=== PATIENT | male | born 1935 | race Caucasian/White ===

== ENCOUNTER 2016-07-15 23:18 | Emergency (ER) | payer BC ==
--- NOTE | 2016-07-15 23:21 | PDOC ---
History of Present Illness - General Stated Complaint: BLEEDING FROM TOOTH EXTRACTION Time Seen by Provider: 07/15/16 23:21 - History of Present Illness Initial Comments: This 81-year-old man with a history of atrial fibrillation/hypertension/ hyperlipidemia presents with his son after having extraction of the right upper second molar earlier today. Approximately 10 AM, his dentist removed the tooth. According to the patient and his son, since then he has been bleeding from the site, despite direct pressure with gauze pads. In the past, the patient states that his dentist would suture the area of extraction since the patient is on warfarin. Apparently, today he did not use any sutures. The patient denies lightheadedness/shortness of breath/chest pain. He is scheduled to see his dentist tomorrow in the afternoon for replacement of a dental bridge. Past History - Past Medical History Allergies/Adverse Reactions: Allergies Allergy/AdvReac Type Severity Reaction Status Date / Time No Known Drug Allergies Allergy Verified 07/15/16 23:20 Home Medications: Ambulatory Orders Digoxin [Digitek] 0.5 mcg PO DAILY 07/15/16 Ezetimibe/Simvastatin [Vytorin 10-20 mg Tablet] 1 tab PO DAILY 07/15/16 Furosemide [Lasix] 20 mg PO DAILY 07/15/16 Metoprolol Succinate [Toprol Xl] 200 mg PO DAILY 07/15/16 Ramipril [Altace] 2.5 mg PO DAILY 07/15/16 Warfarin Sodium [Coumadin] 0.5 mg PO DAILY 07/15/16 Anemia: No Asthma: No Cancer: No Cardiac Disorders: Yes (VALVE DISEASE, A-FIB) CVA: No COPD: No CHF: No Dementia: No Diabetes: No GI Disorders: No Disorders: No HTN: Yes Hypercholesterolemia: Yes Liver Disease: No Seizures: No Thyroid Disease: No - Surgical History Abdominal Surgery: No Appendectomy: Yes Cardiac Surgery: Yes (cardiac cath?) Cholecystectomy: No Lung Surgery: No Neurologic Surgery: No Orthopedic Surgery: Yes (L knee arthroscopy) - Psycho/Social/Smoking Cessation Hx Anxiety: No Suicidal Ideation: No Smoking History: Never smoked Have you smoked in the past 12 months: No Hx Alcohol Use: No Drug/Substance Use Hx: No Substance Use Type: Alcohol Hx Substance Use Treatment: No Review of Systems - Review of Systems Able to Perform ROS?: Yes Comments:: 12 point review of systems is negative except for what is noted in the history of present illness *Physical Exam - Physical Exam Comments: GENERAL: The patient is awake, alert, and fully oriented, in no acute distress. Vital signs as noted. HEAD: Normal with no signs of trauma. EYES: Pupils equal, round and reactive to light, extraocular movements intact, sclera anicteric, conjunctiva clear with no pallor. ENT: Persistent oozing from the lateral aspect of extraction site, right upper second molar No pulsatile bleeding vessel observed No other abnormality present in the oropharynx or mouth NECK: Normal range of motion, supple without lymphadenopathy, JVD, or masses. LUNGS: Breath sounds equal, clear to auscultation bilaterally. No wheeze/ crackles. EXTREMITIES: Normal range of motion, no edema. No clubbing or cyanosis. No cords, erythema, or tenderness. NEUROLOGICAL: Cranial nerves II through XII grossly intact. Normal speech, normal gait. PSYCH: Normal mood, normal affect. SKIN: Warm, Dry, normal turgor, no rashes or lesions noted. As noted above, patient presents with persistent bleeding from dental extraction site. 1 mL of 1% lidocaine infiltrated into the area of bleeding. 3 interrupted sutures of 5-0 Vicryl placed in the area of bleeding. Surgicel packing placed on the area of suture and direct pressure maintained for 10 minutes. Medical Decision Making - Medical Decision Making Patient was observed for brief period of time after direct pressure to the sutured extraction site. No further bleeding was evident. Patient will be discharged with instructions to avoid chewing food until seen by his dentist. He should call his dentist the first thing in the morning and make an appointment to be seen as soon as possible. He should return to the emergency room if he has any persistent severe bleeding from the site of the extraction *DC/Admit/Observation/Transfer Diagnosis at time of Disposition: Postoperative bleeding from mouth S/P tooth extraction Qualifiers: Tooth loss class: unspecified tooth loss Qualified Code(s): K08.409 - Partial loss of teeth, unspecified cause, unspecified class - Discharge Dispostion Disposition: HOME Condition at time of disposition: Stable - Referrals Referrals: Harrison Monroy MD [Primary Care Provider] - - Patient Instructions Additional Instructions: call your dentist tomorrow morning as discussed direct pressure to area if bleeding recurs otherwise avoid chewing until seen by dentist
[2016-07-15 23:38] VITALS: BP 145/81; PULSE 82; TEMP 97.9; BMI 32.4
[2016-07-16] MEDS ORDERED: LIDO 2%/EPI 1:200000 PRESRVFRE (20 ML SDVIAL) ONE (00:38)
== END 2016-07-16 02:06 | disposition home or self-care (01) ==
LOC: FER 23:18
PROC: 0CQWXZ0 Repair of Upper Tooth, Single, External Approach (ICD-10-PCS; principal; 2016-07-15)
DX: K08.409 Partial loss of teeth, unspecified cause, unspecified class (principal); R58 Hemorrhage, not elsewhere classified; Z79.01 Long term (current) use of anticoagulants; I48.91 Unspecified atrial fibrillation; I10 Essential (primary) hypertension; E78.5 Hyperlipidemia, unspecified
CPT/HCPCS: 12020; 99281-25

== ENCOUNTER 2016-08-05 08:28 | Emergency (ER) | payer BC ==
--- NOTE | 2016-08-05 08:42 | PDOC ---
History of Present Illness - General Chief Complaint: Pain, Acute Stated Complaint: ABDOMINAL PAIN RADIATED TO CHEST AND NECK Time Seen by Provider: 08/05/16 08:31 History Source: Patient Exam Limitations: No Limitations - History of Present Illness Initial Comments: 08/05/16 08:43 This patient is a 81-year-old man with a history of atrial fibrillation (on coumadin and digoxin), hypertension, hyperlipidemia presents with a complaint of abdominal pain radiating to the chest Pt states he has had an upper respiratory infection for the past week He has had no fevers or chills He has noted a non productive cough He was actually seen by Pulmonary and Medical doctor for pre operative testing last week Pt states he actually felt better yesterday He awoke this morning at 4am He states he had abdominal pain, growling He thought he was hungry, he got up but was unable to go back to sleep He describes pain as heaviness, rates it 7/10, located in the upper abdomen and radiates to chest He reports associated shortness of breath He denies arm pain, or jaw pain He reports generalized weakness No recent travel No nausea, vomiting, diarrhea No vertigo, no syncope, no palpitations PMH: Afib, HTN, HLD PSH: Appendectomy, Arthroscopy, Cardiac Cath Meds: please see MAR ALL: Cinnamon, Hydrocodone Social: denies drug or cigarette use PMH: Dr Schuyler Eaton GENERAL/CONSTITUTIONAL: Yes: weakness No: fever, chills, loss of appetite. HEAD, EYES, EARS, NOSE AND THROAT: No: change in vision, ear pain, discharge, sore throat, throat swelling. CARDIOVASCULAR: Yes: chest pain No: lightheadedness, palpitations, syncope RESPIRATORY: Yes: cough, shortness of breath No: wheezing, hemoptysis, stridor. GASTROINTESTINAL: No: nausea, vomiting, diarrhea, abdominal pain GENITOURINARY: No: dysuria, hematuria, frequency, urgency, flank pain. MUSCULOSKELETAL: No: back pain, neck pain, joint pain, muscle swelling or pain SKIN: No: lesions, pallor, rash or easy bruising. NEUROLOGIC: No: headache, vertigo, paresthesias, weakness ENDOCRINE: No: unexplained weight gain or loss HEMATOLOGIC/LYMPHATIC: No: anemia, easy bleeding, swelling nodes. GENERAL: The patient is in no acute distress. HEAD: Normal with no signs of trauma. EYES: PERRLA, EOMI, sclera anicteric, conjunctiva clear. ENT: Ears normal, nares patent, oropharynx clear without exudates. Moist mucous membranes. NECK: Normal range of motion, supple without lymphadenopathy, JVD, or masses. LUNGS: Breath sounds equal, clear to auscultation bilaterally. No wheezes, and no crackles. HEART: Irregular rhythm, normal rate, no murmurs appreciated ABDOMEN: Soft, nontender, normoactive bowel sounds. No guarding, no rebound. No masses palpable. EXTREMITIES: No lower extremity edema NEUROLOGICAL: Cranial nerves II through XII grossly intact. Normal speech. No focal neurological deficits. MUSCULOSKELETAL: Back non-tender to palpation, no CVA tenderness SKIN: Warm, Dry, normal turgor, no rashes or lesions noted. 08/05/16 08:57 Past History - Past Medical History Allergies/Adverse Reactions: Allergies Allergy/AdvReac Type Severity Reaction Status Date / Time cinnamon Allergy Intermediate STOMACH Verified 07/24/16 10:23 PAIN hydrocodone Allergy Intermediate STOMACH Verified 07/24/16 10:23 PAIN, NAUSEA Home Medications: Ambulatory Orders Furosemide [Lasix] 20 mg PO DAILY 07/15/16 Metoprolol Succinate [Toprol Xl] 200 mg PO DAILY 07/15/16 Ramipril [Altace] 2.5 mg PO DAILY 07/15/16 Digoxin [Lanoxin -] 0.125 mg PO DAILY 07/24/16 Warfarin Sodium 5 mg PO DAILY 07/24/16 Ezetimibe/Simvastatin [Vytorin 10-20 mg Tablet] 1 tab PO DAILY 08/05/16 Anemia: No Asthma: No Cancer: No Cardiac Disorders: Yes (VALVE DISEASE, A-FIB) CVA: No COPD: No CHF: No Dementia: No Diabetes: No GI Disorders: No Disorders: No HTN: Yes Hypercholesterolemia: Yes Liver Disease: No Seizures: No Thyroid Disease: No - Surgical History Abdominal Surgery: No Appendectomy: Yes Cardiac Surgery: Yes (cardiac cath?) Cholecystectomy: No Lung Surgery: No Neurologic Surgery: No Orthopedic Surgery: Yes (L knee arthroscopy) - Psycho/Social/Smoking Cessation Hx Anxiety: No Suicidal Ideation: No Smoking History: Never smoked Have you smoked in the past 12 months: No Hx Alcohol Use: No Drug/Substance Use Hx: No Substance Use Type: Alcohol Hx Substance Use Treatment: No Heart Score/ECG Review #1 ECG reviewed & interpreted by me at: 08:43 08/05/16 08:43 Twelve-lead EKG was performed and reviewed by me. Afib rate of 83 bpm. [place] ml. Intervals nml - QRS:88ms, QTc:472ms. No st elevation or depression. (+) PVCs ED Treatment Course - LABORATORY CBC & Chemistry Diagram: 08/05/16 12:14 08/05/16 09:06 Medical Decision Making - Medical Decision Making 08/05/16 09:29 Will do labs Will do CXR Will re assess Will contact PMD 08/05/16 09:49 Laboratory Tests 08/05/16 08/05/16 09:06 09:06 WBC 20.4 H D Hgb 14.4 Hct 42.4 Plt Count 255 D Neutrophils % 80.1 Lymphocytes % 6.3 L D INR 1.44 H 08/05/16 09:58 Laboratory Tests 08/05/16 08/05/16 09:06 09:06 Sodium 136 Potassium 4.6 Chloride 105 Carbon Dioxide 23 Anion Gap 8 BUN 19 H D Creatinine 0.8 Random Glucose 125 H Troponin I 0.03 08/05/16 12:41 Laboratory Tests 08/05/16 12:14 WBC 20.0 H Hgb 13.8 Hct 41.0 Plt Count 254 08/05/16 13:05 08/05/16 13:05 Laboratory Tests 08/05/16 09:06 Digoxin 0.6807 L 08/05/16 14:50 CTA chest: no PE Bilateral pulmonary nodules Abd CT: no mass or abscess, no inflammation Will discharge to home Pt will need to call Dr Olvera to alert him that his labs are abnormal 08/05/16 15:[address] Olvera He is not available Message left for him Dr Olvera has called the ER to review this patient's labs He states pt hip replacement will be cancelled I have offered to inform patient He will do so *DC/Admit/Observation/Transfer Diagnosis at time of Disposition: Cough - Discharge Dispostion Disposition: HOME Condition at time of disposition: Stable Admit: No - Referrals Referrals: Pb Olvera MD [Staff Physician] - - Patient Instructions Printed Discharge Instructions: DI for Cough -- Adult Additional Instructions: YOU MUST CALL DR OLVERA TOMORROW REGARDING YOUR LABS YOU WERE GIVEN COPIES OF ALL LABS AND RESULTS PLEASE LET HIM KNOW ABOUT YOUR RESULTS BEFORE YOU HAVE TO GO TO THE OR
[2016-08-05 08:48] VITALS: TEMP 97.9; BMI 31.9
[2016-08-05 09:22] LABS: EOSINOPHIL 0.6 % (0-4.5); MCH 32.7 pg (25.7-33.7); MEAN CELL VOLUME 96.1 fl (80-96); MEAN PLT VOLUME 9.6 fl (7.5-11.1); NEUTROPHILS 80.1 % (42.8-82.8); PLATELET COUNT 255 K/MM3 (134-434); RDW 12.9 % (11.9-15.9); WHITE BLOOD COUNT 20.4 K/mm3 (4.0-10.8)
[2016-08-05 09:29] LABS: INR 1.44 (0.82-1.09)
[2016-08-05 09:35] LABS: ALK PHOS 73 U/L (32-92); AMYLASE 58 U/L (25-125); ANION GAP 8 (8-16); BILIRUBIN,TOTAL 1.4 mg/dl (0.2-1.0); CO2 23 mmol/L (22-28); COCKROFT - GAULT 89.34; CREATININE 0.8 mg/dl (0.6-1.3); GLUCOSE,RANDOM 125 mg/dl (74-106); SGOT/AST 23 U/L (10-42); SGPT/ALT 13 U/L (10-40); TOT PROT 7.1 g/dl (6.4-8.3)
[2016-08-05 09:49] LABS: TROPONIN I (DFP) 0.03 ng/ml (0.03-0.50)
[2016-08-05 11:09] LABS: URINE BILIRUBIN Negative (NEGATIVE); URINE BLOOD Trace-lysed (NEGATIVE); URINE GLUCOSE (UA) Negative (NEGATIVE); URINE KETONE Negative (NEGATIVE); URINE LEUK ESTERASE Negative (NEGATIVE); URINE NITRITE Negative (NEGATIVE); URINE PROTEIN Negative (NEGATIVE); URINE UROBILINOGEN 0.2 E.U/dl (0.2-1.0)
[2016-08-05 11:11] LABS: URINE COLOR YELLOW
--- NOTE | 2016-08-05 11:43 | EKG ---
Test Reason : Blood Pressure : / mmHG Vent. Rate : 083 BPM Atrial Rate : 097 BPM P-R Int : 000 ms QRS Dur : 088 ms QT Int : 402 ms P-R-T Axes : 000 -15 -07 degrees QTc Int : 472 ms ATRIAL FIBRILLATION WITH PREMATURE VENTRICULAR OR ABERRANTLY CONDUCTED COMPLEXES INFERIOR INFARCT , AGE UNDETERMINED ABNORMAL ECG NO PREVIOUS ECGS AVAILABLE Confirmed by CLARK MACIAS MD ([id number]) on 08/05/2016 11:43:06 AM Referred By: NILTON FARR Confirmed By:CLARK MACIAS MD
[2016-08-05 12:24] LABS: DIGOXIN LEVEL 0.6807 ng/ml (0.8-2.0)
[2016-08-05 12:32] LABS: BASOPHIL 0.6 % (0-2.0); EOSINOPHIL 0.3 % (0-4.5); MCH 32.2 pg (25.7-33.7); MCHC 33.8 g/dl (32.0-35.9); MEAN CELL VOLUME 95.4 fl (80-96); MEAN PLT VOLUME 8.6 fl (7.5-11.1); NEUTROPHILS 82.4 % (42.8-82.8); PLATELET COUNT 254 K/MM3 (134-434); RDW 13.3 % (11.9-15.9)
[2016-08-05 14:05] LABS: TROPONIN I (DFP) 0.03 ng/ml (0.03-0.50)
[2016-08-05 14:55] VITALS: BP 120/87; PULSE 98
== END 2016-08-05 15:10 | disposition home or self-care (01) ==
LOC: FER 08:28
DX: R05 Cough (principal); I48.91 Unspecified atrial fibrillation; Z79.01 Long term (current) use of anticoagulants; I10 Essential (primary) hypertension; E78.5 Hyperlipidemia, unspecified
CPT/HCPCS: 36415; 71020-TC; 71275-TC; 74177-TC; 80053; 80162; 81003; 82150; 82550; 83690; 84484; 85025; 85610; 87086; 93005; 99285-25

== ENCOUNTER 2016-09-04 05:53 | Inpatient (IN) | payer BC ==
[2016-09-04] MEDS ORDERED: CEFAZOLIN 2 GM in DEXTROSE 5%-WATER - 50 ML IVPB ONE (06:08)
[2016-09-04] MEDS ORDERED: TRANEXAMIC ACID 1000 MG/10 ML VIAL IVPUSH ONE (06:08)
[2016-09-04] MEDS ORDERED: ROPIVICAINE 0.2%/MORPH PF/KETOROLAC - 51ML DISP.SYRINGE IA ONE ×3 (06:08→10:57)
[2016-09-04] MEDS ORDERED: GABAPENTIN 300 MG CAPSULE (FP) ONE (06:38)
[2016-09-04] MEDS ORDERED: CELECOXIB 200 MG CAPSULE ONE (06:39)
[2016-09-04] MEDS ORDERED: oxyCODONE HCL 10 MG SUSTAINED ACTING TABLET ONE (06:39)
[2016-09-04 06:54] VITALS: BMI 31.7
[2016-09-04] MEDS ORDERED: VANCOMYCIN 1,000 MG VIAL (RESTRICTED TO ID ONLY) ONE (07:04)
[2016-09-04] MEDS ORDERED: ceFAZolin SODIUM 1 GM VIAL ONE ×2 (07:04→08:34)
[2016-09-04 07:17] LABS: INR 1.16 (0.82-1.09); PROTHROMBIN TIME (PATIENT) 12.9 SEC (10.2-13.0)
[2016-09-04] MEDS: oxyCODONE HCL 10 MG SUSTAINED ACTING TABLET PO ONE (07:20)
[2016-09-04] MEDS: CELECOXIB 200 MG CAPSULE PO ONE (07:20)
[2016-09-04] MEDS: GABAPENTIN 300 MG CAPSULE (FP) PO ONE (07:20)
[2016-09-04] MEDS ORDERED: DEXAMETHASONE SOD PHOSPHATE/PF 10 MG/ML SDV ONE (07:25)
[2016-09-04] MEDS ORDERED: LIDOCAINE 1% P/F 10 MG/ML VIAL ONE (07:26)
[2016-09-04] MEDS ORDERED: MIDAZOLAM HCL 2 MG/2 ML SINGLE DOSE VIAL ONE ×3 (07:26→10:00)
[2016-09-04] MEDS ORDERED: BUPIVACAINE HCL/PF (5 MG/ML) 30 ML VIAL IJ ONE ×2 (07:26→07:55)
--- NOTE | 2016-09-04 07:46 | HP ---
Admitting History and Physical - Admission Chief Complaint: Left hip osteoarthritis x years History of Present Illness: 81 year old male presents in regard to his left hip. Longstanding history of left hip osteoarthritis. He complains of pain, limited ROM, difficulty ambulating and difficulty completing ADLs. Patient has failed conservative treatment including PO medication, activity modification and an exercise program. At this point, patient would like to proceed with a left total hip arthroplasty (MAKOplasty). History Source: Patient - Past Medical History Cardiovascular: Yes: AFIB, CHF, HTN, Hyperlipdemia - Past Surgical History Additional Past Surgical History: See written H&P for surgical history - Smoking History Smoking history: Never smoked Have you smoked in the past 12 months: No - Alcohol/Substance Use Hx Alcohol Use: Yes (WINE WITH DINNER) - Social History ADL: Independent History of Recent Travel: No Home Medications - Allergies Allergies/Adverse Reactions: Allergies Allergy/AdvReac Type Severity Reaction Status Date / Time cinnamon AdvReac Intermediate STOMACH Verified 09/04/16 06:41 PAIN hydrocodone AdvReac Intermediate STOMACH Verified 09/04/16 06:41 PAIN, NAUSEA - Home Medications Home Medications: Ambulatory Orders Furosemide [Lasix] 20 mg PO Q48H 07/15/16 Digoxin [Lanoxin -] 0.125 mg PO DAILY 07/24/16 Warfarin Sodium 5 mg PO DAILY 07/24/16 Atorvastatin Ca [Lipitor] 20 mg PO HS 09/04/16 Cholecalciferol (Vitamin D3) [Vitamin D3] 2,000 unit PO DAILY 09/04/16 Metoprolol Succinate [Toprol Xl -] 50 mg PO BID 09/04/16 Ramipril [Altace] 10 mg PO HS 09/04/16 Review of Systems - Review of Systems Musculoskeletal: reports: Decreased ROM (left hip), Joint Pain (left hip) Physical Examination Vital Signs: Vital Signs Temperature 98 F 09/04/16 06:49 Pulse Rate 65 09/04/16 06:49 Respiratory Rate 16 09/04/16 06:49 Blood Pressure 140/85 09/04/16 06:49 O2 Sat by Pulse Oximetry (%) 99 09/04/16 06:58 Constitutional: Yes: Well Nourished, No Distress Eyes: Yes: Conjunctiva Clear HENT: Yes: Atraumatic, Normocephalic Neck: Yes: Supple Cardiovascular: Yes: Regular Rate and Rhythm Respiratory: Yes: Regular Gastrointestinal: Yes: Soft ...Rectal Exam: Yes: Deferred Musculoskeletal: Yes: Joint Stiffness (left hip) Assessment/Plan 81 year old male with history of longstanding left hip osteoarthritis. Patient complains of pain, limited ROM, difficulty ambulating and difficulty with ADLs. He has failed conservative treatment. Proceed with a left total hip arthroplasty (MAKOplasty).
[2016-09-04] MEDS ORDERED: BUPIVACAINE HCL/PF 0.5% (5MG/ML) 10 ML VIAL ONE (08:11)
[2016-09-04] MEDS ORDERED: PROPOFOL 20 ML ONE (08:12)
[2016-09-04] MEDS ORDERED: ePHEDrine SULFATE 50 MG/1 ML AMPULE ONE (08:12)
[2016-09-04] MEDS ORDERED: SUCCINYLCHOLINE CHLORIDE 200 MG/10 ML VIAL ONE (08:12)
[2016-09-04] MEDS ORDERED: TRANEXAMIC ACID 1000 MG/10 ML VIAL ONE (08:34)
[2016-09-04] MEDS ORDERED: DEXAMETHASONE SOD PHOSPHATE 4 MG/1 ML VIAL ONE (08:34)
[2016-09-04] MEDS ORDERED: ONDANSETRON 4 MG/2 ML VIAL ONE (08:34)
[2016-09-04] MEDS ORDERED: VANCOMYCIN 1,000 MG VIAL (RESTRICTED TO ID ONLY) IVPB ONE (10:56)
[2016-09-04] MEDS ORDERED: TRANEXAMIC ACID 1000 MG/10 ML VIAL IVPB ONE (10:56)
[2016-09-04] MEDS ORDERED: MAGNESIUM HYDROX 2400MG/30ML ORAL SUSPENSION 30 ML CUP PO PRN (12:19)
[2016-09-04] MEDS ORDERED: MAG HYDROX/AL HYDROX/SIMETH 30 ML UNIT-DOSE CUP PO PRN (12:19)
--- NOTE | 2016-09-04 12:19 | OP ---
Operative Note - Note: Operative Date: 09/04/16 Pre-Operative Diagnosis: left hip OA Operation: Left TERESA Post-Operative Diagnosis: Same as Pre-op Surgeon: Pb Arellano [employer] Meat Grader: Ivanna Boyce Anesthesia: Spinal Estimated Blood Loss (mls): 200
[2016-09-04] MEDS ORDERED: oxyCODONE HCL 5 MG TABLET PO PRN ×2 (12:22→12:23)
[2016-09-04] MEDS ORDERED: ACETAMINOPHEN 325 MG TABLET (FP) PO SCH (12:30)
[2016-09-04] MEDS ORDERED: LACTATED RINGERS SOLUTION 1,000 ML IV SCH (12:30)
[2016-09-04] MEDS ORDERED: KETOROLAC TROMETHAMINE 30 MG/1 ML VIAL ONE (12:35)
[2016-09-04] MEDS ORDERED: KETOROLAC TROMETHAMINE 30 MG/1 ML VIAL IVPUSH ONE (12:40)
[2016-09-04] MEDS ORDERED: ACETAMINOPHEN 1000 MG/100 ML VIAL (NON FORMULARY) IVPB ONE ×2 (12:40→12:45)
[2016-09-04] MEDS ORDERED: traMADol HCL 50 MG TABLET PO ONE (12:40)
[2016-09-04] MEDS ORDERED: PANTOPRAZOLE 40 MG TABLET (FP) PO ONE (13:15)
--- NOTE | 2016-09-04 13:16 | SPEC ---
DATE OF OPERATION: 09/04/2016 PREOPERATIVE DIAGNOSIS: Left hip osteoarthritis. POSTOPERATIVE DIAGNOSIS: Left hip osteoarthritis. PROCEDURE: Left total hip replacement with MAKOplasty robotic navigation. ATTENDING: Dr. Janette Olvera. MATERIALS ANALYST: JIE Shelton. ANESTHESIA: Spinal plus sedation. ESTIMATED BLOOD LOSS: 200 mL. COMPLICATIONS: None. SPECIMENS: Resected bone was sent for pathology analysis. DISPOSITION: The patient was transferred to the PACU in stable condition. IMPLANTS USED: Chantel Accolade 2 size 8 femoral component, Chantel Tritanium 58-mm acetabular component with MDM liner and head ball with +4 offset inner head. INDICATIONS: This is a 81-year-old male who presented to the office complaining of longstanding left hip and thigh pain. He was seen and examined by Dr. Olvera and diagnosed with severe left hip osteoarthritis. He was initially treated conservatively with an interarticular corticosteroid injection, medications and physical therapy but failed conservative management. He continue to have severe pain and ambulatory dysfunction and was indicated for a left total hip replacement. The risks, benefits and alteratives of the surgery were explained to the patient ion great detail and he elected to proceed with surgery. PROCEDURE IN DETAIL: On the day of surgery, the patient was taken to the operating room and placed on the OR table. Spinal anesthesia was administered by the anesthesiologist. The patient was then positioned in the lateral decubitus position on the table and all bony prominences were padded. An axillary roll was placed. The operative hip was then prepped and draped in the usual sterile fashion and intravenous antibiotics were given for infection prophylaxis. A surgical time-out was then performed with the team, and the patients identity, procedure, side, availability of implants, and the administration of antibiotics were confirmed. An approximately 15-cm longitudinal incision was made through the skin centered on the greater trochanter of the hip. This dissection was carried down through the subcutaneous tissues to the deep fascia. This fascia was then incised and a Cobra was placed around the inferior femoral neck. Electrocautery was used to reflect the anterior 40% of the gluteus medius and minimus starting at the musculotendinous junction and leaving a cuff for closure. This was reflected to reveal the capsule of the hip joint. An anterior capsulectomy was performed and the femoral head and neck were visualized. Grade 4 changes were noted diffusely throughout the joint. At this point, three small stab incisions were made superior to the main incision along the iliac crest. Three self-drilling Steinmann pins were then placed and the Advasense pelvic array was attached. Reference points on the limb were then entered into the robotic device and the limb length deficiency, offset, and femoral neck resection level were then calculated by the software. The hip was then dislocated with traction and external rotation. An oscillating saw was used to make the femoral neck cut at the level previously templated, and the femoral head was removed. Attention was then turned to the acetabulum. Retractors were then placed around the acetabulum and the labrum was removed. An acetabular checkpoint pin and the Advasense software were used to register the contours of the acetabulum. The acetabulum was then reamed in a single stage to the preoperatively templated size using the Vikash robotic arm. The appropriately sized cup was then impacted and had solid fixation as well as the preset inclination and version of 40 and 20 degrees, respectively. A polyethylene liner was then placed in the cup. Attention was then turned back to the femur, which was externally rotated for improved visualization. A femoral neck elevator was used to present the femoral neck cut, a box osteotome was used to enter the femoral canal, and a canal finder was used to go down the femoral shaft. The Vikash broaches were used sequentially until the optimal scratch fit was achieved. This correlated with the preoperatively templated size. From here, several different offset head and neck configurations were tested until excellent stability and length were obtained. These measurements were quantified using the Advasense software. All trial components were then removed, the femur was copiously irrigated, and the final components were placed. Leg length and stability were checked again and found to be excellent. Irrigation was performed again. Wound closure was started by repairing the abductor muscles with a no. 2 FiberWire stitch in a Krackow configuration passed through bone tunnels in the greater trochanter and tied over a bony bridge. This repair was then reinforced with a 0 V-Loc 180 barbed suture. Next, no. 1 Polysorb and 0 V-Loc 180 were used to close the fascia. The deep subcutaneous tissue was closed with no. 1 Polysorb sutures, and 2-0 Polysorb was used for the superficial subcutaneous tissue. The skin was closed using both 3-0 V-Loc 90 suture in a running subcuticular fashion and SwiftSet skin adhesive. The Vikash array and pins were removed from the iliac crest and the stab incision sites were irrigated and closed with 4-0 Polysorb sutures and SwiftSet skin adhesive. Once this was completed, a sterile dressing was applied. The patient was then awakened and taken to the PACU in stable condition. ADDENDUM: After final components were placed the hip was irrigated with normal saline, then a 3-minute dilute Betadine lavage was performed according to the [place] protocol. Following this, the hip was again thoroughly irrigated with normal saline pulsatile lavage and wound closure was begun. JANETTE OLVERA M.D. [id number]
[2016-09-04] MEDS: ONDANSETRON 4 MG/2 ML VIAL IVPB PRN (17:16)
[2016-09-04] MEDS: CEFAZOLIN 2 GM/D5W 50 ML IVPB SCH (18:17)
[2016-09-04] MEDS: ACETAMINOPHEN 325 MG TABLET (FP) PO SCH (19:03)
[2016-09-04] MEDS: KETOROLAC TROMETHAMINE 15 MG/ML VIAL IVPUSH SCH ×2 (19:05→19:18)
[2016-09-04] MEDS: traMADol HCL 50 MG TABLET PO SCH ×2 (19:05→19:18)
[2016-09-04] MEDS: ATORVASTATIN CA 20 MG TABLET (FP) PO SCH (21:19)
[2016-09-04] MEDS: GABAPENTIN 300 MG CAPSULE (FP) PO SCH (21:19)
[2016-09-04] MEDS: METOPROLOL SUCCINATE 50 MG TAB.SR.24H (FP) PO SCH (21:19)
[2016-09-04] MEDS: SENNOSIDES/DOCUSATE COMBO (SENNA PLUS) TABLET (UD) PO SCH (21:19)
[2016-09-04] MEDS: ASCORBIC ACID 500 MG TABLET (FP) PO SCH (21:19)
[2016-09-04] MEDS: oxyCODONE HCL 10 MG SUSTAINED ACTING TABLET PO SCH (21:20)
[2016-09-04] MEDS: CELECOXIB 200 MG CAPSULE PO SCH (21:20)
[2016-09-04] MEDS: RAMIPRIL 5 MG CAPSULE (FP) PO SCH (21:20)
[2016-09-05] MEDS: traMADol HCL 50 MG TABLET PO SCH ×5 (01:27→19:27)
[2016-09-05] MEDS: ACETAMINOPHEN 325 MG TABLET (FP) PO SCH ×4 (01:27→19:26)
[2016-09-05] MEDS: KETOROLAC TROMETHAMINE 15 MG/ML VIAL IVPUSH SCH ×2 (01:27→06:25)
[2016-09-05] MEDS: CEFAZOLIN 2 GM/D5W 50 ML IVPB SCH (01:28)
[2016-09-05 08:17] LABS: ANION GAP 6 (8-16); CALCIUM 8.5 mg/dl (8.4-10.2); CO2 24 mmol/L (22-28); GLUCOSE,RANDOM 132 mg/dl (74-106)
[2016-09-05 08:57] LABS: MCH 32.8 pg (25.7-33.7); MCHC 34.2 g/dl (32.0-35.9); MEAN PLT VOLUME 10.1 fl (7.5-11.1); PLATELET COUNT 204 K/MM3 (134-434); RDW 13.2 % (11.9-15.9); WHITE BLOOD COUNT 17.5 K/mm3 (4.0-10.8)
--- NOTE | 2016-09-05 09:10 | PN ---
Progress Note (short form) - Note Progress Note: Anesthesiology Post-op/Pain Service POD #1 s/p L THR under spinal anesthesia with paravertebral block. Pt sitting up in chair with no discomfort. States he was able to walk to bathroom with some assistance. He denies any residual numbness or paresthesia. Pain is well- controlled. Denies h/a. VSS.
[2016-09-05] MEDS: DIGOXIN 0.125 MG TABLET (FP) PO SCH (09:56)
[2016-09-05] MEDS: APIXABAN 2.5 MG TABLET PO SCH ×2 (09:56→22:02)
[2016-09-05] MEDS: CELECOXIB 200 MG CAPSULE PO SCH (09:56)
[2016-09-05] MEDS: SENNOSIDES/DOCUSATE COMBO (SENNA PLUS) TABLET (UD) PO SCH ×2 (09:57→22:02)
[2016-09-05] MEDS: oxyCODONE HCL 10 MG SUSTAINED ACTING TABLET PO SCH ×2 (09:57→22:02)
[2016-09-05] MEDS: GABAPENTIN 300 MG CAPSULE (FP) PO SCH ×2 (09:57→22:03)
[2016-09-05] MEDS: PANTOPRAZOLE 40 MG TABLET (FP) PO SCH (09:58)
[2016-09-05] MEDS: ASCORBIC ACID 500 MG TABLET (FP) PO SCH ×2 (09:59→22:02)
[2016-09-05] MEDS: MULTIVITAMINS (DAILY MVI) TABLET (FP) PO SCH (09:59)
[2016-09-05] MEDS: METOPROLOL SUCCINATE 50 MG TAB.SR.24H (FP) PO SCH ×2 (09:59→23:00)
[2016-09-05] MEDS ORDERED: FUROSEMIDE 20 MG TABLET (FP) PO SCH (10:00)
[2016-09-05] MEDS ORDERED: WARFARIN NA 5 MG TABLET (UD) PO SCH (10:00)
--- NOTE | 2016-09-05 21:03 | PN ---
Progress Note (short form) - Note Progress Note: Pt seen and examined. Comfortable. No complaints. AVSS Selected Entries 09/05/16 09/05/16 09/05/16 06:00 08:26 09:56 Temperature 98.3 F Pulse Rate 75 81 Respiratory 18 18 Rate Respiratory Non-Labored Effort Blood Pressure 118/58 O2 Sat by Pulse 96 96 Oximetry (%) Oxygen Delivery Room Air Room Air Method Laboratory Tests 09/04/16 09/05/16 09/05/16 06:30 07:00 07:00 WBC 17.5 H Hgb 12.0 D Hct 35.0 L Plt Count 204 INR 1.16 Sodium 136 Potassium 5.3 H Chloride 106 Carbon Dioxide 24 Anion Gap 6 L BUN 31 H D Creatinine 1.0 D Random Glucose 132 H Calcium 8.5 Gen: NAD LLE: c/d/i, NVID A/P 81yo male POD#1 s/p L TERESA 1. PT/OOB - WBAT LLE 2. D/C home tomorrow
[2016-09-05] MEDS: ATORVASTATIN CA 20 MG TABLET (FP) PO SCH (22:02)
[2016-09-05] MEDS: RAMIPRIL 5 MG CAPSULE (FP) PO SCH (22:02)
--- NOTE | 2016-09-06 00:38 | ED.PROV ---
Physicial Exam I saw and examined the patient. This is a 81-year-old male who said that he got confused and got out of the wrong side of the bed and bumped into some of the furniture rate resulting in him having to sit down on the floor. Patient said he did not hit his head he did not injure himself and did not actually fall but just sat on the floor. Patient denies any complaints. On exam there is no evidence of trauma and no tenderness on palpation. - Vital Signs Last Vital Signs Temp Pulse Resp BP Pulse Ox 98.4 F 73 20 97/53 97 09/05/16 22:20 09/05/16 22:20 09/05/16 22:20 09/05/16 22:20 09/05/16 22:20
[2016-09-06] MEDS: ACETAMINOPHEN 325 MG TABLET (FP) PO SCH ×3 (00:47→13:42)
[2016-09-06] MEDS: traMADol HCL 50 MG TABLET PO SCH ×3 (00:51→13:42)
[2016-09-06] MEDS: METOPROLOL SUCCINATE 50 MG TAB.SR.24H (FP) PO SCH ×2 (00:52→09:30)
[2016-09-06 07:37] LABS: MCH 32.9 pg (25.7-33.7); MCHC 34.5 g/dl (32.0-35.9); MEAN CELL VOLUME 95.4 fl (80-96); MEAN PLT VOLUME 8.8 fl (7.5-11.1); PLATELET COUNT 166 K/MM3 (134-434); RDW 12.8 % (11.9-15.9); WHITE BLOOD COUNT 14.5 K/mm3 (4.0-10.8)
[2016-09-06 07:52] LABS: ANION GAP 6 (8-16); CALCIUM 8.3 mg/dl (8.4-10.2); CO2 26 mmol/L (22-28); CREATININE 1.1 mg/dl (0.6-1.3); GLUCOSE,RANDOM 98 mg/dl (74-106)
[2016-09-06] MEDS: ONDANSETRON 4 MG/2 ML VIAL IVPB PRN (08:49)
[2016-09-06] MEDS: APIXABAN 2.5 MG TABLET PO SCH (09:30)
[2016-09-06] MEDS: MULTIVITAMINS (DAILY MVI) TABLET (FP) PO SCH (09:30)
[2016-09-06] MEDS: ASCORBIC ACID 500 MG TABLET (FP) PO SCH (09:30)
[2016-09-06] MEDS: PANTOPRAZOLE 40 MG TABLET (FP) PO SCH (09:30)
[2016-09-06] MEDS: DIGOXIN 0.125 MG TABLET (FP) PO SCH (09:30)
[2016-09-06 09:31] VITALS: PULSE 78
[2016-09-06] MEDS: SENNOSIDES/DOCUSATE COMBO (SENNA PLUS) TABLET (UD) PO SCH (09:31)
[2016-09-06] MEDS: GABAPENTIN 300 MG CAPSULE (FP) PO SCH (09:31)
[2016-09-06] MEDS: oxyCODONE HCL 10 MG SUSTAINED ACTING TABLET PO SCH (09:31)
[2016-09-06 10:48] VITALS: TEMP 98.3
[2016-09-06] MEDS: CELECOXIB 200 MG CAPSULE PO ONE (10:51)
[2016-09-06] MEDS: GABAPENTIN 300 MG CAPSULE (FP) PO ONE (10:52)
[2016-09-06] MEDS: oxyCODONE HCL 10 MG SUSTAINED ACTING TABLET PO ONE (10:52)
--- NOTE | 2016-09-06 16:14 | PN ---
Progress Note (short form) - Note Progress Note: Pt seen and examined. Events noted. Fell last night when he tried to get up to go to the bathroom by himself without calling for assistance. He did not realize that the SCD machine was connected to his legs and got tangled in the cord. C/o slight right shoulder pain but otherwise comfortable and ambulatory. Wants to go home. AVSS Selected Entries 09/06/16 09/06/16 09/06/16 06:29 09:30 10:00 Temperature 98.3 F Pulse Rate 78 Respiratory 16 Rate Blood Pressure 148/69 O2 Sat by Pulse 98 Oximetry (%) Oxygen Delivery Room Air Method Laboratory Tests 09/06/16 09/06/16 07:24 07:24 WBC 14.5 H Hgb 11.3 L Hct 32.7 L Plt Count 166 Sodium 136 Potassium 4.7 Chloride 104 Carbon Dioxide 26 Anion Gap 6 L BUN 40 H D Creatinine 1.1 Random Glucose 98 D Gen: NAD LLE: c/d/i, NVID RUE: Skin intact, no TTP anywhere. FROM with mild discomfort with forward flexion. Mild impingement signs. Full strength in rotator cuff. NVID A/P 81yo male POD#2 s/p L TERESA, right shoulder bursitis vs supraspinatus strain 1. PT/OOB - WBAT LLE 2. D/C home today 3. If right shoulder pain does not resolve in next week - corticosteroid injection in office.
[2016-09-06 17:04] VITALS: BP 130/68
--- NOTE | 2016-09-08 14:17 | PATH ---
Surgical Pathology Report Patient Name: SATISH HUMMEL Med. Rec. #: [id number] /Age/Gender: 1935 (Age: 81) / M Account: [id number] Location: [facility] MED-SURG Taken: 09/04/2016 Received: 09/04/2016 Reported: 09/10/2016 Physicians: Pb Arellano M.D. Specimen(s) Received LEFT FEMORAL HEAD Clinical History Left hip osteoarthritis Final Diagnosis FEMORAL HEAD, LEFT, TOTAL HIP REPLACEMENT (MAKOPLASTY): DEGENERATIVE JOINT DISEASE. Electronically Signed Gabe Herrera M.D. Gross Description Received in formalin, labeled "left femoral head" is a 5.5 x 5.3 x 5.0 cm femoral head with a 1 cm in length portion of femoral neck attached. The margin of resection is smooth. There is a 5 cm in greatest dimension area of eburnation present. The remaining articular surface is hutton-yellow and diffusely nodular and granular. The underlying trabecular bone is hutton-yellow and heterogeneous. A independent sales representative section is submitted in one cassette, following decalcification. 09/05/201609/05/2016
== END 2016-09-06 17:06 | disposition home health service (06) | DRG 470 ==
LOC: FM/S 05:53
PROVIDERS: ADMIT Student in an Organized Health Care Education/Training Program; ATTEND Student in an Organized Health Care Education/Training Program
PROC: 8E0W0CZ Robotic Assisted Procedure of Trunk Region, Open Approach (ICD-10-PCS; 2016-09-04)
PROC: 0SRB0JA Replacement of Left Hip Joint with Synthetic Substitute, Uncemented, Open Approach (ICD-10-PCS; principal; 2016-09-04 08:59)
DX: M16.12 Unilateral primary osteoarthritis, left hip (principal); E78.5 Hyperlipidemia, unspecified; I11.0 Hypertensive heart disease with heart failure; I50.9 Heart failure, unspecified; I48.91 Unspecified atrial fibrillation
CPT/HCPCS: 36415; 73030-TC-RT; 73502-TC-LT; 80048; 85027; 85610; 88304-TC; 88311-TC; 94760; 97116-GP; 97162-GP

== ENCOUNTER 2017-04-24 07:30 | Emergency (ER) | payer BC, OTHER ==
[2017-04-24 07:40] VITALS: BP 163/95; PULSE 68; TEMP 97.7; BMI 31.9
--- NOTE | 2017-04-24 08:04 | PDOC ---
History of Present Illness - General Chief Complaint: Pain Stated Complaint: LEFT LEG PAIN Time Seen by Provider: 04/24/17 08:03 - History of Present Illness Initial Comments: 04/24/17 08:05 Chief complaint: Left leg pain History of present illness: Left leg pain since yesterday. Onset while watching TV. No known injury or fall. Pain described as a sharp stabbing pain of the lateral left calf, intermittent, and moving today to the lateral left thigh. The pain is not present at rest, but occurs only with weightbearing. It is severely limiting ambulation. Review of systems: Denies distal numbness tingling pain or weakness of the ankle foot or toes. Denies back pain. Denies chest pain, shortness of breath, abdominal pain, nausea, vomiting, diarrhea, visual or focal neurologic symptoms other than those described above. Remainder systems reviewed and found to be negative Past medical history: Recent left hip replacement August 2016 without complication. Atrial fibrillation. CHF. High blood pressure. COPD. Elevated cholesterol Of note is that the patient is maintained on Eliquiis without any missed doses. No history of DVT or pulmonary embolus Social history: Lives alone, family nearby, denies alcohol drugs or tobacco. Ambulatory and cares for self. Family history: Significant for coronary artery disease, but not blood clots. Physical exam: Alert cheerful and cooperative no acute distress. Somewhat obese. No pain at rest Afebrile, vital signs normal except for mildly elevated blood pressure in the 165/95 range PERRLA, fundi benign, ENT clear Neck supple without bruit mass or nodes. No tenderness or deformity Chest clear, full breath sounds bilaterally, no wheezes rales or rhonchi, no dullness to percussion at the bases CV S1 and S2 distant, irregularly irregular, 2/6 systolic ejection murmur left sternal border, no JVD or edema Abdomen benign Neurological C2 to 12 intact. No focal sensory or motor deficits. Strength full and symmetric. Gait is impaired due to pain with weightbearing Extremities: Left leg appears entirely normal. There is no swelling, edema, erythema, induration, point tenderness, or deformity. There is good range of motion of both hips without pain or limitation. Pulses are full. No distal sensory deficits. Strength full and symmetric. There is no posterior calf swelling or tenderness and no cords palpable. 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 Past History - Past Medical History Allergies/Adverse Reactions: Allergies Allergy/AdvReac Type Severity Reaction Status Date / Time cinnamon AdvReac Intermediate STOMACH Verified 04/24/17 07:36 PAIN hydrocodone AdvReac Intermediate STOMACH Verified 04/24/17 07:36 PAIN, NAUSEA Home Medications: Ambulatory Orders Furosemide [Lasix] 20 mg PO DAILY 07/15/16 Digoxin [Lanoxin -] 0.125 mg PO DAILY 07/24/16 Atorvastatin Ca [Lipitor] 20 mg PO HS 09/04/16 Metoprolol Succinate [Toprol XL -] 50 mg PO BID 09/04/16 Ramipril [Altace] 10 mg PO HS 09/04/16 Apixaban [Eliquis -] 5 mg PO BID 04/24/17 Anemia: No Asthma: No Cancer: No Cardiac Disorders: Yes (VALVE DISEASE, A-FIB) CVA: No COPD: No CHF: No DVT: No Dementia: No Diabetes: No GI Disorders: No Disorders: No HTN: Yes Hypercholesterolemia: Yes Liver Disease: No Seizures: No Thyroid Disease: No - Surgical History Abdominal Surgery: No Appendectomy: Yes Cardiac Surgery: Yes (cardiac cath?) Cholecystectomy: No Lung Surgery: No Neurologic Surgery: No Orthopedic Surgery: Yes (L knee arthroscopy) - Suicide/Smoking/Psychosocial Hx Smoking History: Never smoked Have you smoked in the past 12 months: No Hx Alcohol Use: Yes (OCCASIONAL WINE) Drug/Substance Use Hx: No Substance Use Type: None Hx Substance Use Treatment: No *Physical Exam - Vital Signs Last Vital Signs Temp Pulse Resp BP Pulse Ox 97.7 F 68 18 163/95 99 04/24/17 07:31 04/24/17 07:31 04/24/17 07:31 04/24/17 07:31 04/24/17 07:31 Medical Decision Making - Medical Decision Making 04/24/17 09:21 X-ray is negative. Doppler is negative. Most likely diagnosis is meralgia. This was discussed with the patient and his son. The condition should improve with time. Use a walker was recommended until pain improved. Follow-up with orthopedist was encouraged. Patient adequately ambulatory and in no severe pain upon discharge to follow-up as recommended. *DC/Admit/Observation/Transfer Diagnosis at time of Disposition: Meralgia paresthetica of left side - Discharge Dispostion Disposition: HOME Condition at time of disposition: Stable Admit: No - Referrals - Patient Instructions Additional Instructions: Maintained normal level of activity. Avoid excessive standing and walking, bending and stretching. Tylenol as needed Use your walker if walking is painful Usually this condition gradually improved with time. If it is persistent or worsen, see orthopedist for further evaluation and treatment. An injection of the involved nerve may be helpful. - Post Discharge Activity
== END 2017-04-24 09:27 | disposition home or self-care (01) ==
LOC: FER 07:30
DX: G57.12 Meralgia paresthetica, left lower limb (principal); I10 Essential (primary) hypertension; E78.00 Pure hypercholesterolemia, unspecified; Z95.5 Presence of coronary angioplasty implant and graft; I48.91 Unspecified atrial fibrillation
CPT/HCPCS: 73523-TC-FY; 93971-TC; 99282-25

== ENCOUNTER 2018-09-08 07:12 | Emergency (ER) | payer BC ==
[2018-09-08 07:25] VITALS: BP 119/80; PULSE 68; TEMP 97.7; BMI 31.2
--- NOTE | 2018-09-08 07:50 | PDOC ---
History of Present Illness - General Chief Complaint: Pain, Acute Stated Complaint: PAIN IN LOWER LEFT LEG X 2 WEEKS Time Seen by Provider: 09/08/18 07:22 - History of Present Illness Initial Comments: 09/08/18 09:47 Chief complaint Back and leg pain History of present illness: Pain radiating from left buttock to posterior thigh and calf for several days. Worse this morning. No fall, injury, or recent overuse. no distal numbness tingling. No bowel or bladder incontinence or retention. No swelling or redness. Evaluated yesterday at [facility] with venous Doppler, no DVT. Review of systems: No chest pain, shortness of breath, nausea, diaphoresis, abdominal pain, visual or other focal neurologic symptoms, or unsteadiness of gait. No bowel or bladder symptoms. Past medical history: Sciatica intermittent in the past. Atrial fibrillation. CHF. BPH. On Eliquis. Social history: Lives alone, takes care of himself, no tobacco, one glass of wine each evening. Family nearby, involved, visited frequently Family history reviewed and noncontributory Physical exam: Alert and oriented well-developed well-nourished no acute distress cheerful and cooperative ambulatory Afebrile, vital signs . hEENT clear Neck supple no bruits masses nodes Lungs clear CV regular without murmur rub or gallop Abdomen benign Neurological C2 to 12 intact. Strength full and symmetric. No focal deficits. Gait stable Extremities: No calf swelling or tenderness. No warmth or erythema. full range of motiom left hip without restriction or pain. LS spine without deformity point tenderness or inflammation. straight leg raising negative. No distal sensory or motor deficits. Impression: Recurrence of sciatica, no sign of DVT or CVA/TIA .Plan: Symptomatic treatment and follow-up if no improvement Back Specialist Past History - Past Medical History Allergies/Adverse Reactions: Allergies Allergy/AdvReac Type Severity Reaction Status Date / Time cinnamon AdvReac Intermediate STOMACH Verified 09/08/18 07:14 PAIN hydrocodone AdvReac Intermediate STOMACH Verified 09/08/18 07:14 PAIN, NAUSEA Home Medications: Ambulatory Orders Apixaban [Eliquis] 5 mg PO BID 09/08/18 Atorvastatin Ca [Lipitor] 20 mg PO HS 09/08/18 Carvedilol 12.5 mg PO BID 09/08/18 Furosemide 20 mg PO DAILY 09/08/18 Sacubitril/Valsartan [Entresto 49 mg-51 mg Tablet] 1 each PO BID 09/08/18 Spironolactone 25 mg PO DAILY 09/08/18 Tamsulosin HCl 0.4 mg PO DAILY 09/08/18 Anemia: No Asthma: No Cancer: No Cardiac Disorders: Yes (VALVE DISEASE, A-FIB) CVA: No COPD: No CHF: No DVT: No Dementia: No Diabetes: No GI Disorders: No Disorders: No HTN: Yes Hypercholesterolemia: Yes Liver Disease: No Seizures: No Thyroid Disease: No - Surgical History Abdominal Surgery: No Appendectomy: Yes Cardiac Surgery: Yes (cardiac cath?) Cholecystectomy: No Lung Surgery: No Neurologic Surgery: No Orthopedic Surgery: Yes (L knee arthroscopy) - Suicide/Smoking/Psychosocial Hx Smoking History: Never smoked Have you smoked in the past 12 months: No Information on smoking cessation initiated: No Hx Alcohol Use: Yes (WINE) Drug/Substance Use Hx: No Substance Use Type: None Hx Substance Use Treatment: No *Physical Exam - Vital Signs Last Vital Signs Temp Pulse Resp BP Pulse Ox 97.7 F 68 16 119/80 99 09/08/18 07:21 09/08/18 07:21 09/08/18 07:21 09/08/18 07:21 09/08/18 07:21 *DC/Admit/Observation/Transfer Diagnosis at time of Disposition: Sciatica Qualifiers: Laterality: left Qualified Code(s): M54.32 - Sciatica, left side - Discharge Dispostion Disposition: HOME Condition at time of disposition: Stable Decision to Admit order: No - Referrals Referrals: Sorin Corea MD [Staff Physician] - 1 week - Patient Instructions Printed Discharge Instructions: DI for Sciatica Additional Instructions: avoid the sitting position. Use heat. 2 Tylenol as needed for pain. Follow-up Back Specialist as directed if no improvement. - Post Discharge Activity
== END 2018-09-08 07:54 | disposition home or self-care (01) ==
LOC: FER 07:12
DX: M54.32 Sciatica, left side (principal); I10 Essential (primary) hypertension; E78.00 Pure hypercholesterolemia, unspecified; I48.91 Unspecified atrial fibrillation
CPT/HCPCS: 99281-25

== ENCOUNTER 2020-02-14 19:05 | Emergency (ER) | payer BC ==
[2020-02-14 19:15] VITALS: BP 130/54; PULSE 66; TEMP 98.5; BMI 29.6
[2020-02-14 19:50] LABS: BASO % 1.2 % (0-2.0); EOS % 3.4 % (0-4.5); HEMATOCRIT 31.9 % (35.4-49); HEMOGLOBIN 10.7 GM/dl (11.7-16.9); LYMPH % 18.8 % (8-40); MCH 33.8 pg (25.7-33.7); MCHC 33.6 g/dl (32.0-35.9); MEAN CELL VOLUME 100.5 fl (80-96); MEAN PLT VOLUME 8.7 fl (7.5-11.1); MONO % 10.1 % (3.8-10.2); NEUT % 66.5 % (42.8-82.8); PLATELET COUNT 162 K/MM3 (134-434); RBC 3.17 M/mm3 (4.00-5.60); RDW 13.1 % (11.9-15.9); WHITE BLOOD COUNT 6.1 K/mm3 (4.0-10.8)
[2020-02-14 20:10] LABS: ALBUMIN 3.6 g/dl (3.4-5.0); BILIRUBIN,TOTAL 0.9 mg/dl (0.2-1); CALCIUM 8.5 mg/dl (8.5-10); CREATININE 1.2 mg/dl (0.55-1.3); POTASSIUM 4.6 mmol/L (3.5-5.1); TOT PROT 6.5 g/dl (6.4-8.2)
== END 2020-02-14 21:53 | disposition home or self-care (01) ==
LOC: FER 19:05
DX: R10.10 Upper abdominal pain, unspecified (principal)
CPT/HCPCS: 36415; 76705-TC; 80053; 81003; 81015; 82550; 83605; 83690; 84484; 85025; 93005; 99284-25

== ENCOUNTER 2020-08-10 09:05 | Emergency (ER) | payer BC ==
[2020-08-10 09:22] VITALS: BP 117/69; PULSE 63; TEMP 97.7; BMI 30.2
[2020-08-10] MEDS ORDERED: DIPHTH,PERTUSS(ACELL),TET 0.5 ML DISP.SYRIN IM ONE ×2 (09:26→09:27)
[2020-08-10] MEDS ORDERED: LIDO 2%/EPI 1:200000 PRESRVFRE (20 ML SDVIAL) INF ONE (09:28)
[2020-08-10] MEDS ORDERED: LIDO 2%/EPI 1:200000 PRESRVFRE (20 ML SDVIAL) ONE (09:29)
== END 2020-08-10 10:00 | disposition home or self-care (01) ==
LOC: FER 09:05
PROC: 0HQ0XZZ Repair Scalp Skin, External Approach (ICD-10-PCS; principal; 2020-08-10)
PROC: 3E0234Z Introduction of Serum, Toxoid and Vaccine into Muscle, Percutaneous Approach (ICD-10-PCS; 2020-08-10)
DX: S01.82XA Laceration with foreign body of other part of head, initial encounter (principal); S80.212A Abrasion, left knee, initial encounter
CPT/HCPCS: 90471; 90715; 99284-25

== ENCOUNTER 2020-08-17 09:15 | Emergency (ER) | payer BC ==
[2020-08-17 09:21] VITALS: BP 118/65; PULSE 65; TEMP 98.1; BMI 30.2
== END 2020-08-17 10:40 | disposition home or self-care (01) ==
LOC: FER 09:15
DX: Z48.02 Encounter for removal of sutures (principal)
CPT/HCPCS: 73562-TC-LT-FY; 99281-25

== ENCOUNTER 2020-08-28 11:20 | Inpatient (IN) | payer BC ==
[2020-08-28 11:39] VITALS: BMI 30.2
[2020-08-28 12:41] LABS: EOS % 2.5 % (0-4.5); HEMATOCRIT 31.1 % (35.4-49); HEMOGLOBIN 10.7 GM/dl (11.7-16.9); LYMPH % 21.4 % (8-40); MCH 34.3 pg (25.7-33.7); MCHC 34.4 g/dl (32.0-35.9); MEAN CELL VOLUME 99.6 fl (80-96); MEAN PLT VOLUME 9.2 fl (7.5-11.1); MONO % 8.6 % (3.8-10.2); NEUT % 65.5 % (42.8-82.8); PLATELET COUNT 124 10^3/uL (134-434); RBC 3.12 M/mm3 (4.00-5.60); RDW 13.7 % (11.9-15.9); WHITE BLOOD COUNT 6.4 K/mm3 (4.0-10.8)
[2020-08-28 12:58] LABS: ALBUMIN 3.7 g/dl (3.4-5.0); CALCIUM 8.6 mg/dl (8.5-10); CREATININE 0.9 mg/dl (0.55-1.3); TOT PROT 6.4 g/dl (6.4-8.2)
[2020-08-28] MEDS ORDERED: HEPARIN NA (PORCINE) 5,000 UNITS/ML 1ML VIAL SQ SCH (18:00)
[2020-08-28 19:34] LABS: INR 1.27 (0.83-1.09); PROTHROMBIN TIME (PATIENT) 15.5 SEC (9.7-13.0)
[2020-08-28 19:37] LABS: ACTIVATED PTT 33.9 SECONDS (25.2-36.5)
[2020-08-28 19:55] LABS: N-TERMINAL BNP 4104.5 pg/ml (5-450)
[2020-08-28 20:58] LABS: LDH 208 U/L (87-246)
[2020-08-28 21:26] LABS: MAGNESIUM 2.4 mg/dL (1.8-2.4)
[2020-08-28] MEDS: ATORVASTATIN CA 20 MG TABLET (FP) PO SCH (22:19)
[2020-08-28] MEDS: APIXABAN 5 MG TABLET PO SCH (22:19)
[2020-08-28] MEDS: SACUBITRIL/VALSARTAN 49 MG-51 MG TABLET PO SCH (22:20)
[2020-08-28] MEDS ORDERED: SODIUM CHLORIDE 250 ML IV STA (23:43)
[2020-08-29] MEDS ORDERED: MAGNESIUM OXIDE 400 MG TABLET (FP) PO ONE (04:23)
[2020-08-29 05:48] LABS: BASO % 2.9 % (0-2.0); EOS % 2.6 % (0-4.5); HEMATOCRIT 34.2 % (35.4-49); HEMOGLOBIN 11.5 GM/dL (11.7-16.9); LYMPH % 19.1 % (8-40); MCH 33.7 pg (25.7-33.7); MCHC 33.7 g/dl (32.0-35.9); MEAN CELL VOLUME 100.2 fl (80-96); MEAN PLT VOLUME 9.7 fl (7.5-11.1); MONO % 8.7 % (3.8-10.2); NEUT % 66.7 % (42.8-82.8); PLATELET COUNT 137 10^3/uL (134-434); RBC 3.41 M/mm3 (4.00-5.60); RDW 14.3 % (11.9-15.9); WHITE BLOOD COUNT 7.4 K/mm3 (4.0-10.0)
[2020-08-29 06:03] LABS: ALBUMIN 3.6 g/dl (3.4-5.0); CALCIUM 8.6 mg/dL (8.5-10.1); CHLORIDE 112 mmol/L (98-107); SODIUM 140 mmol/L (136-145)
[2020-08-29 06:04] LABS: ANION GAP 6 MMOL/L (8-16); BLOOD UREA NITROGEN 20.2 mg/dL (7-18); CO2 23 mmol/L (21-32); GLUCOSE,RANDOM 88 mg/dL (74-106); MAGNESIUM 2.2 mg/dL (1.8-2.4)
[2020-08-29 06:06] LABS: SGPT/ALT 30 U/L (13-61)
[2020-08-29 06:07] LABS: CREATININE 0.9 mg/dL (0.55-1.3); SGOT/AST 18 U/L (15-37)
[2020-08-29 06:08] LABS: TOT PROT 6.4 g/dl (6.4-8.2)
[2020-08-29 06:10] LABS: ALK PHOS 78 U/L (45-117)
[2020-08-29] MEDS ORDERED: DEXAMETHASONE SOD PHOSPHATE 4 MG/1 ML VIAL IVPUSH ONE (08:17)
[2020-08-29] MEDS ORDERED: PT OWN MED DRAWER 7, Y5N ONE ×2 (09:21→14:19)
[2020-08-29] MEDS ORDERED: DEXAMETHASONE SOD PHOSPHATE 4 MG/1 ML VIAL IVPUSH SCH ×2 (10:00)
[2020-08-29] MEDS ORDERED: ZINC SULFATE 220 MG TABLET PO SCH (10:00)
[2020-08-29] MEDS: APIXABAN 5 MG TABLET PO SCH ×2 (10:15→22:02)
[2020-08-29] MEDS: CHOLECALCIFEROL (VIT D3) 1,000 UNIT (25 MCG) TABLET PO SCH (10:15)
[2020-08-29] MEDS: ASCORBIC ACID 500 MG TABLET (FP) PO SCH ×2 (10:15→22:02)
[2020-08-29] MEDS: FUROSEMIDE 20 MG TABLET (FP) PO SCH (10:15)
[2020-08-29] MEDS: SACUBITRIL/VALSARTAN 49 MG-51 MG TABLET PO SCH ×2 (10:22→22:02)
[2020-08-29] MEDS: CARVEDILOL 12.5 MG TABLET (FP) PO SCH ×2 (10:28→22:02)
[2020-08-29] MEDS: METHIMAZOLE 5 MG TABLET (FP) PO SCH (14:27)
[2020-08-29] MEDS: ATORVASTATIN CA 20 MG TABLET (FP) PO SCH (22:02)
[2020-08-29] MEDS ORDERED: ZINC SULFATE 220 MG CAPSULE (FP) PO SCH (23:17)
[2020-08-30 09:16] LABS: BASO % 0.3 % (0-2.0); EOS % 2.4 % (0-4.5); HEMATOCRIT 31.6 % (35.4-49); HEMOGLOBIN 10.8 GM/dL (11.7-16.9); LYMPH % 15.1 % (8-40); MCH 33.8 pg (25.7-33.7); MCHC 34.1 g/dl (32.0-35.9); MEAN CELL VOLUME 99.2 fl (80-96); MEAN PLT VOLUME 9.4 fl (7.5-11.1); MONO % 7.4 % (3.8-10.2); NEUT % 74.8 % (42.8-82.8); PLATELET COUNT 140 10^3/uL (134-434); RBC 3.18 M/mm3 (4.00-5.60); RDW 14.2 % (11.9-15.9); WHITE BLOOD COUNT 6.8 K/mm3 (4.0-10.0)
[2020-08-30 09:33] LABS: CHLORIDE 110 mmol/L (98-107); SODIUM 139 mmol/L (136-145)
[2020-08-30 09:35] LABS: CALCIUM 8.3 mg/dL (8.5-10.1)
[2020-08-30 09:36] LABS: ALBUMIN 3.3 g/dl (3.4-5.0); ANION GAP 6 MMOL/L (8-16); BLOOD UREA NITROGEN 24.8 mg/dL (7-18); CO2 23 mmol/L (21-32); GLUCOSE,RANDOM 168 mg/dL (74-106)
[2020-08-30 09:39] LABS: CREATININE 0.9 mg/dL (0.55-1.3); SGOT/AST 14 U/L (15-37); SGPT/ALT 26 U/L (13-61)
[2020-08-30 09:40] LABS: BILIRUBIN,TOTAL 0.9 mg/dL (0.2-1); TOT PROT 6.1 g/dl (6.4-8.2)
[2020-08-30 09:41] LABS: ALK PHOS 82 U/L (45-117)
[2020-08-30] MEDS: ASCORBIC ACID 500 MG TABLET (FP) PO SCH (09:41)
[2020-08-30] MEDS: CARVEDILOL 12.5 MG TABLET (FP) PO SCH (09:42)
[2020-08-30] MEDS: APIXABAN 5 MG TABLET PO SCH (09:42)
[2020-08-30] MEDS: FUROSEMIDE 20 MG TABLET (FP) PO SCH (09:42)
[2020-08-30] MEDS: CHOLECALCIFEROL (VIT D3) 1,000 UNIT (25 MCG) TABLET PO SCH (09:42)
[2020-08-30] MEDS: METHIMAZOLE 5 MG TABLET (FP) PO SCH (11:02)
[2020-08-30] MEDS: SACUBITRIL/VALSARTAN 49 MG-51 MG TABLET PO SCH (11:02)
[2020-08-30 12:08] LABS: SARS-CoV-2 NAA Not Detected (Not Detected)
[2020-08-30 13:10] VITALS: BP 106/55; PULSE 58; TEMP 97.6
== END 2020-08-30 14:36 | disposition home or self-care (01) | DRG 313 ==
LOC: FER 11:20 → J4W 17:57
PROVIDERS: ADMIT Internal Medicine; ATTEND Nurse Practitioner Acute Care
DX: R07.89 Other chest pain (principal); U07.1 COVID-19; I48.19 Other persistent atrial fibrillation; I47.2 Ventricular tachycardia; E78.00 Pure hypercholesterolemia, unspecified; R00.1 Bradycardia, unspecified; E78.5 Hyperlipidemia, unspecified; I25.5 Ischemic cardiomyopathy; I11.0 Hypertensive heart disease with heart failure; I27.20 Pulmonary hypertension, unspecified; E05.90 Thyrotoxicosis, unspecified without thyrotoxic crisis or storm; N40.0 Benign prostatic hyperplasia without lower urinary tract symptoms; N20.0 Calculus of kidney; I50.82 Biventricular heart failure; Z23 Encounter for immunization
CPT/HCPCS: 36415; 70450-TC; 71045-TC-FY; 80053; 81003; 81015; 82550; 82728; 83615; 83735; 83880; 84443; 84484; 85025; 85379; 85610; 85651; 85730; 86140; 86769; 93005; 93306-TC; 99285-25; C9803; U0003; U0005

== ENCOUNTER 2020-10-12 21:24 | Emergency (ER) | payer BC ==
[2020-10-12 21:32] VITALS: BP 124/74; PULSE 68; TEMP 97.6; BMI 30.2
[2020-10-12] MEDS ORDERED: LIDO 2%/EPI 1:200000 PRESRVFRE (20 ML SDVIAL) ONE (21:59)
== END 2020-10-12 22:24 | disposition home or self-care (01) ==
LOC: FER 21:24
PROC: 0CQ6XZZ Repair Lower Gingiva, External Approach (ICD-10-PCS; principal; 2020-10-12)
DX: Z98.818 Other dental procedure status (principal)
CPT/HCPCS: 99283-25

== ENCOUNTER 2022-01-29 07:23 | Inpatient (IN) | payer BC ==
[2022-01-29] MEDS ORDERED: SODIUM CHLORIDE 500 ML IV STA (08:29)
[2022-01-29] MEDS ORDERED: ALBUTEROL SO4 0.042% IH SOL 1.25 MG/3 ML VIAL.NEB NEB ONE (08:34)
[2022-01-29 08:36] LABS: ALBUMIN 3.8 g/dl (3.4-5.0); BILIRUBIN,TOTAL 1.2 mg/dl (0.2-1); CALCIUM 8.4 mg/dl (8.5-10); CREATININE 1.1 mg/dl (0.55-1.3); TOT PROT 7.1 g/dl (6.4-8.2)
[2022-01-29] MEDS ORDERED: ALBUTEROL SO4 0.083% IH SOL 2.5 MG/3 ML VIAL.NEB. NEB ONE (08:36)
[2022-01-29 08:41] LABS: HEMATOCRIT 33.3 % (35.4-49); HEMOGLOBIN 11.4 G/dL (11.7-16.9); MCH 34.4 pg (25.7-33.7); MCHC 34.2 g/dl (32.0-35.9); MEAN CELL VOLUME 100.6 fl (80-96); MEAN PLT VOLUME 9.6 fl (7.5-11.1); PLATELET COUNT 146.4 10^3/uL (134-434); RBC 3.31 10^6/uL (4.00-5.60); RDW 14.2 % (11.9-15.9); WHITE BLOOD COUNT 6.1 10^3/uL (4.0-10.8)
[2022-01-29 08:47] LABS: ADD RBC MORPHOLOGY YES
[2022-01-29] MEDS ORDERED: ASPIRIN 81 MG CHEWABLE TABLETS PO ONE (10:04)
[2022-01-29 10:15] LABS: ANISOCYTOSIS 1+; PLATELET ESTIMATE ADEQUATE
[2022-01-29] MEDS ORDERED: ASPIRIN 81 MG CHEWABLE TABLETS ONE (10:22)
[2022-01-29] MEDS: CARVEDILOL 6.25 MG TABLET (FP) PO SCH ×2 (13:03→22:14)
[2022-01-29] MEDS: APIXABAN 5 MG TABLET PO SCH ×2 (13:03→22:14)
[2022-01-29] MEDS: SACUBITRIL/VALSARTAN 49 MG-51 MG TABLET PO SCH ×2 (13:03→22:13)
[2022-01-29 13:14] LABS: MAGNESIUM 1.8 mg/dL (1.8-2.4); PHOSPHOROUS 3.6 mg/dl (2.5-4.9)
[2022-01-29] MEDS ORDERED: HEPARIN NA (PORCINE) 5,000 UNITS/ML 1ML VIAL SQ SCH (14:00)
[2022-01-29 15:19] LABS: N-TERMINAL BNP 6832.5 pg/ml (5-450)
[2022-01-29] MEDS: ATORVASTATIN CA 20 MG TABLET (FP) PO SCH (22:14)
[2022-01-30 07:41] LABS: BASO % 0.7 % (0-2.0); EOS % 0.3 % (0-4.5); HEMATOCRIT 30.5 % (35.4-49); HEMOGLOBIN 10.6 GM/dL (11.7-16.9); LYMPH % 19.6 % (8-40); MCH 34.8 pg (25.7-33.7); MCHC 34.9 g/dl (32.0-35.9); MEAN CELL VOLUME 99.8 fl (80-96); MEAN PLT VOLUME 9.1 fl (7.5-11.1); MONO % 16.2 % (3.8-10.2); NEUT % 63.2 % (42.8-82.8); PLATELET COUNT 123 10^3/uL (134-434); RBC 3.06 M/mm3 (4.00-5.60); RDW 13.4 % (11.9-15.9); WHITE BLOOD COUNT 4.9 K/mm3 (4.0-10.0)
[2022-01-30 07:59] LABS: ALBUMIN 3.3 g/dl (3.4-5.0)
[2022-01-30 08:04] LABS: TOT PROT 6.2 g/dl (6.4-8.2)
[2022-01-30 08:05] LABS: BILIRUBIN,TOTAL 0.6 mg/dL (0.2-1)
[2022-01-30] MEDS ORDERED: ALBUTEROL SO4 0.083% IH SOL 2.5 MG/3 ML VIAL.NEB. NEB ONE (08:50)
[2022-01-30] MEDS: SACUBITRIL/VALSARTAN 49 MG-51 MG TABLET PO SCH ×2 (09:53→22:09)
[2022-01-30] MEDS: APIXABAN 5 MG TABLET PO SCH ×2 (09:54→22:09)
[2022-01-30 10:52] VITALS: BMI 30.6
[2022-01-30] MEDS: FUROSEMIDE 20 MG TABLET (FP) PO SCH (11:56)
[2022-01-30] MEDS: methylPREDNISolone NA SUCC 40 MG/1 ML VIAL IVPUSH SCH ×2 (12:50→17:22)
[2022-01-30 12:54] LABS: EPI CELLS 1 /uL (0-25.1); HYALINE CASTS 0 /uL (0-3.1); PH,URINE 5.5 (5.0-8.0); URINE APPEARANCE CLEAR; URINE BACTERIA 32 /uL (0-1359); URINE BILIRUBIN NEGATIVE (NEGATIVE); URINE COLOR YELLOW; URINE GLUCOSE (UA) NEGATIVE (NEGATIVE); URINE KETONE TRACE (NEGATIVE); URINE LEUK ESTERASE NEGATIVE (NEGATIVE); URINE NITRITE NEGATIVE (NEGATIVE); URINE PROTEIN TRACE (NEGATIVE); URINE RBC 17 /uL (0-23.9); URINE WBC 2 /uL (0-25.8)
[2022-01-30] MEDS ORDERED: guaiFENesin/D-METHORPHAN HB 10 ML UNIT-DOSE CUPS PO PRN (14:38)
[2022-01-30] MEDS: ALBUTEROL SO4 2.5/IPRATROPIUM 0.5 INH SOL 3 ML VIAL.NEB. NEB SCH ×2 (15:43→20:08)
[2022-01-30] MEDS: ATORVASTATIN CA 20 MG TABLET (FP) PO SCH (22:09)
[2022-01-31] MEDS: methylPREDNISolone NA SUCC 40 MG/1 ML VIAL IVPUSH SCH ×3 (01:40→19:42)
[2022-01-31 08:01] LABS: BASO % 0.2 % (0-2.0); HEMATOCRIT 32.7 % (35.4-49); HEMOGLOBIN 11.3 GM/dL (11.7-16.9); LYMPH % 12.4 % (8-40); MCH 34.3 pg (25.7-33.7); MCHC 34.5 g/dl (32.0-35.9); MEAN CELL VOLUME 99.4 fl (80-96); MEAN PLT VOLUME 8.9 fl (7.5-11.1); MONO % 2.8 % (3.8-10.2); NEUT % 84.6 % (42.8-82.8); PLATELET COUNT 129 10^3/uL (134-434); RBC 3.29 M/mm3 (4.00-5.60); RDW 13.8 % (11.9-15.9); WHITE BLOOD COUNT 3.7 K/mm3 (4.0-10.0)
[2022-01-31 08:55] LABS: BLOOD UREA NITROGEN 29.8 mg/dL (7-18); CALCIUM 8.2 mg/dL (8.5-10.1)
[2022-01-31] MEDS: ALBUTEROL SO4 2.5/IPRATROPIUM 0.5 INH SOL 3 ML VIAL.NEB. NEB SCH ×4 (09:06→21:10)
[2022-01-31] MEDS: FUROSEMIDE 20 MG TABLET (FP) PO SCH (10:00)
[2022-01-31] MEDS: PANTOPRAZOLE 40 MG TABLET PO SCH (10:02)
[2022-01-31] MEDS: APIXABAN 5 MG TABLET PO SCH ×2 (10:02→21:35)
[2022-01-31] MEDS: METHIMAZOLE 5 MG TABLET PO SCH (10:02)
[2022-01-31] MEDS: SACUBITRIL/VALSARTAN 49 MG-51 MG TABLET PO SCH ×2 (10:03→21:35)
[2022-01-31] MEDS: CARVEDILOL 6.25 MG TABLET (FP) PO SCH ×2 (10:05→21:35)
[2022-01-31] MEDS: ATORVASTATIN CA 20 MG TABLET (FP) PO SCH (21:35)
[2022-02-01] MEDS: methylPREDNISolone NA SUCC 40 MG/1 ML VIAL IVPUSH SCH ×3 (02:21→21:34)
[2022-02-01] MEDS: ALBUTEROL SO4 2.5/IPRATROPIUM 0.5 INH SOL 3 ML VIAL.NEB. NEB SCH ×4 (08:02→20:05)
[2022-02-01 08:06] LABS: HEMATOCRIT 32.7 % (35.4-49); HEMOGLOBIN 11.4 GM/dL (11.7-16.9); LYMPH % 6.2 % (8-40); MCH 34.6 pg (25.7-33.7); MEAN PLT VOLUME 9.2 fl (7.5-11.1); MONO % 5.1 % (3.8-10.2); NEUT % 88.7 % (42.8-82.8); PLATELET COUNT 155 10^3/uL (134-434); RDW 13.6 % (11.9-15.9); WHITE BLOOD COUNT 10.9 K/mm3 (4.0-10.0)
[2022-02-01 08:20] LABS: CALCIUM 7.9 mg/dL (8.5-10.1)
[2022-02-01 08:21] LABS: BLOOD UREA NITROGEN 37.8 mg/dL (7-18)
[2022-02-01 08:23] LABS: CREATININE 1.1 mg/dL (0.55-1.3)
[2022-02-01] MEDS: CARVEDILOL 6.25 MG TABLET (FP) PO SCH ×2 (10:05→21:36)
[2022-02-01] MEDS: PANTOPRAZOLE 40 MG TABLET PO SCH (10:05)
[2022-02-01] MEDS: FUROSEMIDE 20 MG TABLET (FP) PO SCH (10:05)
[2022-02-01] MEDS: SACUBITRIL/VALSARTAN 49 MG-51 MG TABLET PO SCH ×2 (10:06→21:33)
[2022-02-01] MEDS: APIXABAN 5 MG TABLET PO SCH ×2 (10:08→21:36)
[2022-02-01] MEDS: METHIMAZOLE 5 MG TABLET PO SCH (10:09)
[2022-02-01 14:48] VITALS: RESP 18
[2022-02-01] MEDS: ATORVASTATIN CA 20 MG TABLET (FP) PO SCH (21:35)
[2022-02-02] MEDS: ALBUTEROL SO4 2.5/IPRATROPIUM 0.5 INH SOL 3 ML VIAL.NEB. NEB SCH ×4 (08:05→20:35)
[2022-02-02] MEDS: CARVEDILOL 6.25 MG TABLET (FP) PO SCH ×2 (11:11→21:39)
[2022-02-02] MEDS: APIXABAN 5 MG TABLET PO SCH ×2 (11:12→21:39)
[2022-02-02] MEDS: PANTOPRAZOLE 40 MG TABLET PO SCH (11:12)
[2022-02-02] MEDS: FUROSEMIDE 20 MG TABLET (FP) PO SCH (11:12)
[2022-02-02] MEDS: SACUBITRIL/VALSARTAN 49 MG-51 MG TABLET PO SCH ×2 (11:12→21:39)
[2022-02-02] MEDS: methylPREDNISolone NA SUCC 40 MG/1 ML VIAL IVPUSH SCH ×2 (11:12→21:39)
[2022-02-02] MEDS: METHIMAZOLE 5 MG TABLET PO SCH (16:28)
[2022-02-02] MEDS: ATORVASTATIN CA 20 MG TABLET (FP) PO SCH (21:39)
[2022-02-03] MEDS: ALBUTEROL SO4 2.5/IPRATROPIUM 0.5 INH SOL 3 ML VIAL.NEB. NEB SCH ×2 (07:15→11:23)
[2022-02-03 08:56] LABS: HEMATOCRIT 33.1 % (35.4-49); HEMOGLOBIN 11.5 GM/dL (11.7-16.9); MCH 34.6 pg (25.7-33.7); MCHC 34.8 g/dl (32.0-35.9); MEAN CELL VOLUME 99.4 fl (80-96); MEAN PLT VOLUME 9.3 fl (7.5-11.1); MONO % 4.7 % (3.8-10.2); NEUT % 88.3 % (42.8-82.8); PLATELET COUNT 160 10^3/uL (134-434); RBC 3.33 M/mm3 (4.00-5.60); RDW 13.7 % (11.9-15.9); WHITE BLOOD COUNT 9.2 K/mm3 (4.0-10.0)
[2022-02-03 09:13] LABS: ALBUMIN 3.2 g/dl (3.4-5.0); CALCIUM 8.2 mg/dL (8.5-10.1)
[2022-02-03 09:15] LABS: BLOOD UREA NITROGEN 41.8 mg/dL (7-18)
[2022-02-03 09:16] LABS: CREATININE 1.2 mg/dL (0.55-1.3)
[2022-02-03 09:19] LABS: BILIRUBIN,TOTAL 0.5 mg/dL (0.2-1); TOT PROT 6.3 g/dl (6.4-8.2)
[2022-02-03] MEDS: FUROSEMIDE 20 MG TABLET (FP) PO SCH (09:46)
[2022-02-03] MEDS: CARVEDILOL 6.25 MG TABLET (FP) PO SCH (09:46)
[2022-02-03] MEDS: PANTOPRAZOLE 40 MG TABLET PO SCH (09:46)
[2022-02-03] MEDS: APIXABAN 5 MG TABLET PO SCH (09:46)
[2022-02-03] MEDS: methylPREDNISolone NA SUCC 40 MG/1 ML VIAL IVPUSH SCH (09:47)
[2022-02-03] MEDS: SACUBITRIL/VALSARTAN 49 MG-51 MG TABLET PO SCH (09:47)
[2022-02-03] MEDS: METHIMAZOLE 5 MG TABLET PO SCH (09:47)
[2022-02-03 09:50] VITALS: BP 102/60; PULSE 84; TEMP 98.5
== END 2022-02-03 13:55 | disposition home or self-care (01) | DRG 202 ==
LOC: FER 07:23 → FM/S 10:23 → OBSVTOIN 11:54 → FM/S 14:36 → J4S 14:57
DX: J21.0 Acute bronchiolitis due to respiratory syncytial virus (principal); E87.1 Hypo-osmolality and hyponatremia; I50.22 Chronic systolic (congestive) heart failure; I42.0 Dilated cardiomyopathy; I48.19 Other persistent atrial fibrillation; E78.5 Hyperlipidemia, unspecified; I27.20 Pulmonary hypertension, unspecified; I11.0 Hypertensive heart disease with heart failure; E05.90 Thyrotoxicosis, unspecified without thyrotoxic crisis or storm; R00.1 Bradycardia, unspecified; R00.0 Tachycardia, unspecified; I95.1 Orthostatic hypotension; I50.82 Biventricular heart failure; M54.32 Sciatica, left side
CPT/HCPCS: 0241U-QW; 36415; 71046-TC-FY; 80048; 80053; 81003; 82962; 83036; 83605; 83735; 83880; 84100; 84443; 84484; 85025; 87040; 87086; 93005; 93306-TC; 94640; 97116-GP; 97161-GP; 99285-25; G0378

== ENCOUNTER 2022-11-25 06:19 | Day surgery (SDC) | payer OTHER ==
[2022-11-24 14:05] VITALS: BMI 30.1
[2022-11-25] MEDS ORDERED: TRANEXAMIC ACID 1000 MG/10 ML VIAL IVPUSH ONE (06:28)
[2022-11-25] MEDS ORDERED: CEFAZOLIN 2 GM in DEXTROSE 5%-WATER - 50 ML IVPB ONE (06:28)
[2022-11-25] MEDS ORDERED: CELECOXIB 200 MG CAPSULE PO ONE (06:28)
[2022-11-25] MEDS ORDERED: ceFAZolin SODIUM 1 GM VIAL ONE ×2 (07:21→08:46)
[2022-11-25] MEDS ORDERED: VANCOMYCIN 1,000 MG VIAL (RESTRICTED TO ID ONLY) ONE (07:21)
[2022-11-25] MEDS ORDERED: THROMBIN (BOVINE) 5,000 UNIT VIAL TP ONE (07:22)
[2022-11-25] MEDS ORDERED: MIDAZOLAM HCL 2 MG/2 ML SINGLE DOSE VIAL ONE (07:36)
[2022-11-25] MEDS ORDERED: BUPIVACAINE HCL/PF 0.5% (5MG/ML) 10 ML VIAL ONE (07:37)
[2022-11-25] MEDS ORDERED: FENTANYL CITRATE/PF 50 MCG/ML VIAL ONE ×2 (07:37→10:55)
[2022-11-25] MEDS ORDERED: BUPIVACAINE HCL/PF 2.5 MG/ML - 30 ML VIAL IJ ONE (07:37)
[2022-11-25] MEDS ORDERED: ONDANSETRON 4 MG/2 ML VIAL IVPUSH PRN (08:04)
[2022-11-25] MEDS ORDERED: MAG HYDROX/AL HYDROX/SIMETH 30 ML UNIT-DOSE CUP PO PRN (08:04)
[2022-11-25] MEDS ORDERED: LACTATED RINGERS SOLUTION 1,000 ML IV SCH (08:15)
[2022-11-25] MEDS ORDERED: ePHEDrine SULFATE 50 MG/1 ML AMPULE ONE (08:45)
[2022-11-25] MEDS ORDERED: ACETAMINOPHEN INJECTION 100 ML IVPB ONE (10:38)
[2022-11-25] MEDS: ACETAMINOPHEN 1000 MG/100 ML BAG IVPB ONE ×2 (10:48→15:08)
[2022-11-25] MEDS: oxyCODONE HCL 5 MG TABLET PO PRN ×2 (13:27→17:30)
[2022-11-25] MEDS: SENNOSIDES/DOCUSATE COMBO (SENNA PLUS) TABLET (UD) PO SCH ×2 (15:06→21:06)
[2022-11-25] MEDS: PANTOPRAZOLE 40 MG TABLET PO SCH (15:07)
[2022-11-25] MEDS: MULTIVITAMINS (DAILY MVI) TABLET (FP) PO SCH (15:07)
[2022-11-25] MEDS: CEFAZOLIN SODIUM 2 GM in DEXTROSE 5%-WATER 100 ML IVPB SCH ×2 (16:54→23:29)
[2022-11-25 21:02] VITALS: RESP 18
[2022-11-25] MEDS: ATORVASTATIN CA 20 MG TABLET (FP) PO SCH (21:05)
[2022-11-25] MEDS: SACUBITRIL/VALSARTAN 49 MG-51 MG TABLET PO SCH (21:05)
[2022-11-25] MEDS: CARVEDILOL 12.5 MG TABLET (FP) PO SCH (21:07)
[2022-11-26] MEDS: oxyCODONE HCL 5 MG TABLET PO PRN ×3 (01:58→14:15)
[2022-11-26] MEDS ORDERED: INSULIN SLIDING SCALE (NOVOLOG) 1 VIAL SQ ONE (06:53)
[2022-11-26 08:31] LABS: HEMATOCRIT 25.4 % (35.4-49); HEMOGLOBIN 8.5 G/dL (11.7-16.9); MCH 34.4 pg (25.7-33.7); MCHC 33.5 g/dl (32.0-35.9); MEAN CELL VOLUME 102.3 fl (80-96); MEAN PLT VOLUME 9.6 fl (7.5-11.1); PLATELET COUNT 147.3 10^3/uL (134-434); RBC 2.48 10^6/uL (4.00-5.60); RDW 15.2 % (11.9-15.9); WHITE BLOOD COUNT 8.6 10^3/uL (4.0-10.8)
[2022-11-26] MEDS: SENNOSIDES/DOCUSATE COMBO (SENNA PLUS) TABLET (UD) PO SCH ×2 (09:22→21:21)
[2022-11-26] MEDS: APIXABAN 5 MG TABLET PO SCH ×2 (09:22→21:21)
[2022-11-26] MEDS: PANTOPRAZOLE 40 MG TABLET PO SCH (09:22)
[2022-11-26] MEDS: MULTIVITAMINS (DAILY MVI) TABLET (FP) PO SCH (09:23)
[2022-11-26] MEDS: METHIMAZOLE 5 MG TABLET PO SCH (09:23)
[2022-11-26] MEDS: SACUBITRIL/VALSARTAN 49 MG-51 MG TABLET PO SCH ×2 (09:55→21:21)
[2022-11-26] MEDS: CARVEDILOL 12.5 MG TABLET (FP) PO SCH ×2 (09:55→21:21)
[2022-11-26] MEDS: FUROSEMIDE 20 MG TABLET (FP) PO SCH (09:55)
[2022-11-26] MEDS: ATORVASTATIN CA 20 MG TABLET (FP) PO SCH (21:21)
[2022-11-27 08:21] LABS: HEMATOCRIT 24.2 % (35.4-49); MCHC 33.1 g/dl (32.0-35.9); MEAN PLT VOLUME 11.3 fl (7.5-11.1); RBC 2.35 10^6/uL (4.00-5.60); RDW 15.6 % (11.9-15.9); WHITE BLOOD COUNT 10.8 10^3/uL (4.0-10.8)
[2022-11-27 09:27] VITALS: BP 92/46; PULSE 86; TEMP 98.8
[2022-11-27] MEDS: oxyCODONE HCL 5 MG TABLET PO PRN (09:42)
[2022-11-27] MEDS: METHIMAZOLE 5 MG TABLET PO SCH (09:43)
[2022-11-27] MEDS: MULTIVITAMINS (DAILY MVI) TABLET (FP) PO SCH (09:44)
[2022-11-27] MEDS: APIXABAN 5 MG TABLET PO SCH (09:47)
[2022-11-27] MEDS: PANTOPRAZOLE 40 MG TABLET PO SCH (09:48)
[2022-11-27] MEDS: SENNOSIDES/DOCUSATE COMBO (SENNA PLUS) TABLET (UD) PO SCH (09:48)
[2022-11-27] MEDS: FUROSEMIDE 20 MG TABLET (FP) PO SCH (09:49)
[2022-11-27] MEDS: CARVEDILOL 12.5 MG TABLET (FP) PO SCH (09:49)
[2022-11-27] MEDS: SACUBITRIL/VALSARTAN 49 MG-51 MG TABLET PO SCH (09:49)
== END 2022-11-27 13:10 | disposition home health service (06) ==
LOC: FASUSAT 06:19 → FM/S 11:48 → FASUSAT 11-27 13:10
PROVIDERS: ATTEND Orthopaedic Surgery
PROC: 8E0Y0CZ Robotic Assisted Procedure of Lower Extremity, Open Approach (ICD-10-PCS; 2022-11-25)
PROC: 0SR90JA Replacement of Right Hip Joint with Synthetic Substitute, Uncemented, Open Approach (ICD-10-PCS; principal; 2022-11-25 08:25)
DX: M16.11 Unilateral primary osteoarthritis, right hip (principal)
CPT/HCPCS: 20985; 27130; C1776; S2900; 36415; 73502-TC-RT-FY; 85027; 94760; 97116-GP; 97162-GP

== ENCOUNTER 2024-06-03 13:01 | Observation (INO) | payer OTHER ==
[2024-06-03] MEDS ORDERED: THIAMINE HCL 200 MG/2 ML VIAL ONE (13:26)
[2024-06-03 13:52] LABS: ABSOLUTE IMMATURE GRANULOCYTES 0.01 x10^3/uL (0.0-0.031); BASOPHILS # 0.08 x10^3/uL (0.01-0.08); EOSINOPHILS # 0.25 x10^3/uL (0.04-0.54); HEMATOCRIT 34.3 % (40.1-51.0); HEMOGLOBIN 11.2 g/dL (13.7-17.5); MCHC 32.7 g/dl (32.3-36.5); MEAN CELL VOLUME 103.9 fl (79.0-92.2); MEAN PLT VOLUME 10.9 fl (9.4-12.4); MONOCYTE # 0.59 x10^3/uL (0.30-0.82); MONOCYTE % 9.5 % (5.3-12.2); PLATELET COUNT 153 x10^3/uL (163-337); RDW 13.8 % (12.6-16.6)
[2024-06-03 13:56] LABS: INR 1.36 (0.83-1.09); PROTHROMBIN TIME (PATIENT) 15.4 SEC (9.7-13.0)
[2024-06-03] MEDS: THIAMINE HCL 200 MG/2 ML VIAL IVPB ONE (14:00)
[2024-06-03] MEDS: SODIUM CHLORIDE 0.9% 500 ML INFUS.BAG IV ONE (14:00)
[2024-06-03 14:05] LABS: ALBUMIN 4.4 g/dl (3.4-5.0); BILIRUBIN,TOTAL 0.8 mg/dl (0.2-1); CALCIUM 9.1 mg/dl (8.5-10.1); MAGNESIUM 1.9 mg/dL (1.8-2.4); POTASSIUM 4.6 mmol/L (3.5-5.1)
[2024-06-03] MEDS ORDERED: ATORVASTATIN CA 80 MG TABLET (FP) ONE (15:31)
[2024-06-03] MEDS ORDERED: ASPIRIN 81 MG CHEWABLE TABLETS ONE (15:32)
[2024-06-03] MEDS: ASPIRIN 81 MG CHEWABLE TABLETS PO ONE (15:33)
[2024-06-03] MEDS: ATORVASTATIN CA 80 MG TABLET (FP) PO ONE (15:34)
[2024-06-03 16:06] LABS: HCV DIAGNOSTIC IN-HOUSE W/RFLX NON-REACTIVE (NONREACTIVE); HIV INTERPRETATION NEGATIVE (NEGATIVE)
[2024-06-03] MEDS: APIXABAN 5 MG TABLET PO SCH (21:28)
[2024-06-03] MEDS: SACUBITRIL/VALSARTAN 49 MG-51 MG TABLET PO SCH (21:28)
[2024-06-03] MEDS: CARVEDILOL 6.25 MG TABLET (FP) PO SCH (21:29)
[2024-06-04 08:40] LABS: BASOPHILS # 0.08 x10^3/uL (0.01-0.08); EOSINOPHIL % 3.7 % (0.8-7.0); EOSINOPHILS # 0.25 x10^3/uL (0.04-0.54); HEMATOCRIT 31.5 % (40.1-51.0); HEMOGLOBIN 10.3 g/dL (13.7-17.5); MCHC 32.7 g/dl (32.3-36.5); MEAN PLT VOLUME 11.4 fl (9.4-12.4); MONOCYTE # 0.62 x10^3/uL (0.30-0.82); MONOCYTE % 9.2 % (5.3-12.2); PLATELET COUNT 134 x10^3/uL (163-337); RDW 13.8 % (12.6-16.6)
[2024-06-04 09:06] LABS: BILIRUBIN,TOTAL 0.9 mg/dl (0.2-1); MAGNESIUM 2.1 mg/dL (1.8-2.4); PHOSPHOROUS 3.6 (2.5-4.9); POTASSIUM 4.6 mmol/L (3.5-5.1); TOT PROT 6.3 g/dl (6.4-8.2)
[2024-06-04] MEDS: FUROSEMIDE 20 MG TABLET (FP) PO SCH (10:33)
[2024-06-04] MEDS: METHIMAZOLE 5 MG TABLET PO SCH (10:34)
[2024-06-04] MEDS ORDERED: SACUBITRIL/VALSARTAN 49 MG-51 MG TABLET PO SCH (10:35)
[2024-06-04] MEDS ORDERED: CARVEDILOL 6.25 MG TABLET (FP) PO SCH (10:35)
[2024-06-04] MEDS ORDERED: CARVEDILOL 3.125 MG TABLET (FP) PO SCH (18:03)
[2024-06-04] MEDS: CARVEDILOL 3.125 MG TABLET (FP) PO SCH (22:24)
[2024-06-04] MEDS: SACUBITRIL/VALSARTAN 24 MG-26 MG TABLET PO SCH (22:24)
[2024-06-05 07:53] LABS: ABSOLUTE IMMATURE GRANULOCYTES 0.01 x10^3/uL (0.0-0.031); EOSINOPHIL % 3.9 % (0.8-7.0); EOSINOPHILS # 0.26 x10^3/uL (0.04-0.54); HEMATOCRIT 31.2 % (40.1-51.0); HEMOGLOBIN 10.2 g/dL (13.7-17.5); MCHC 32.7 g/dl (32.3-36.5); MEAN CELL VOLUME 103.7 fl (79.0-92.2); MEAN PLT VOLUME 11.9 fl (9.4-12.4); MONOCYTE # 0.69 x10^3/uL (0.30-0.82); MONOCYTE % 10.5 % (5.3-12.2); PLATELET COUNT 140 x10^3/uL (163-337); RDW 13.7 % (12.6-16.6)
[2024-06-05 09:07] LABS: CALCIUM 8.8 mg/dl (8.5-10.1); MAGNESIUM 1.9 mg/dL (1.8-2.4); PHOSPHOROUS 3.6 (2.5-4.9); POTASSIUM 4.4 mmol/L (3.5-5.1)
[2024-06-05] MEDS ORDERED: SACUBITRIL/VALSARTAN 49 MG-51 MG TABLET PO SCH (10:00)
[2024-06-05] MEDS: EMPAGLIFLOZIN (JARDIANCE) 10 MG TABLET PO SCH (17:39)
[2024-06-05] MEDS: CARVEDILOL 3.125 MG TABLET (FP) PO SCH (21:05)
[2024-06-05] MEDS: SACUBITRIL/VALSARTAN 24 MG-26 MG TABLET PO SCH (21:06)
[2024-06-06 06:16] VITALS: RESP 18
[2024-06-06 14:59] VITALS: BP 112/70; PULSE 62; TEMP 98.2
== END 2024-06-06 17:07 | disposition home or self-care (01) ==
LOC: FER 13:01 → FM/S 14:49
PROVIDERS: ADMIT Internal Medicine; ATTEND Internal Medicine
PROC: 3E033GC Introduction of Other Therapeutic Substance into Peripheral Vein, Percutaneous Approach (ICD-10-PCS; principal; 2024-06-03)
PROC: 3E0337Z Introduction of Electrolytic and Water Balance Substance into Peripheral Vein, Percutaneous Approach (ICD-10-PCS; 2024-06-03)
DX: R27.0 Ataxia, unspecified (principal); I11.0 Hypertensive heart disease with heart failure; I27.20 Pulmonary hypertension, unspecified; I48.91 Unspecified atrial fibrillation; Z79.01 Long term (current) use of anticoagulants; E78.5 Hyperlipidemia, unspecified; I42.9 Cardiomyopathy, unspecified; E07.9 Disorder of thyroid, unspecified; Z88.8 Allergy status to other drugs, medicaments and biological substances
CPT/HCPCS: 0241U-QW; 36415; 70450-TC; 70496-TC; 70498-TC; 71045-TC-FY; 80048; 80053; 80061; 82607; 82746; 82962; 83036; 83735; 84100; 84439; 84443; 84484; 85025; 85610; 85730; 86803; 87389; 93005; 93306-TC; 96374; 99285-25; G0378